=== PATIENT | male | born 1995 | race African-American/Black ===

== ENCOUNTER → 2017-03-29 | Outpatient (CLI) | payer BC ==
[~2017-03-29] VITALS: Ht 177.8 cm; Wt 81.6 kg
[2017-03-29 10:46] VITALS: BP 114/62
[2017-03-29 11:07] VITALS: BP 112/68
--- NOTE | 2017-03-29 12:33 | Diagnostic Imaging Report ---
EXAMINATION: Fluoroscopic guided joint injection/arthrogram- right. INDICATION: Right shoulder pain, request for MR arthrogram of the shoulder is submitted. Fluoroscopy time: 14 seconds CONSENT: Informed consent was obtained from the patient. The risks, benefits, potential complications and alternatives were reviewed and all questions answered to the patient's satisfaction. PROCEDURE: After sterile preparation and draping, 1% lidocaine was utilized for local anesthesia. A 22 spinal needle is introduced into the glenohumeral joint under fluoroscopic guidance. After confirmation of proper positioning with intra-articular injection of, 12 ml of 1:150 concentration of Gadavist in normal saline is injected the into the joint. The patient tolerated the procedure well with no immediate complications. FINDINGS: Arthrogram demonstrates Normal distribution of contrast in the joint with no filling of the subacromial subdeltoid bursa seen. IMPRESSION: Successful fluoroscopic guided injection of diluted gadolinium into the right shoulder . MR arthrogram to follow. Dictated by: Dictated on workstation # [id number]
--- NOTE | 2017-03-29 16:42 | Diagnostic Imaging Report ---
EXAMINATION: Multiplanar, multisequence MRI of the right shoulder is performed with intra-articular contrast. INDICATION: Right shoulder pain. FINDINGS: There is no os acromiale. There is a focal depression of the cortex along the posterior lateral aspect of the humeral head which might relate to an old Hill-Sachs deformity. There are cystic changes in the humeral head posterolaterally as well which may relate to rotator cuff tendinopathy and mild associated bone marrow edema. There is a high-grade partial tear involving the supraspinatus anterior fibers with retraction of the deep fibers seen from the insertion site of about 2 cm. The area of the tear is approximately 1.5 cm anterior posteriorly. The subscapular tendon is intact. The long head biceps tendon is in its groove. There is undercutting of the superior segment of the labrum with contrast suggestive of a nondisplaced labral tear. The acromioclavicular joint demonstrates no significant degenerative change or osteophyte formation. The muscle bulk is intact. IMPRESSION: 1. High-grade partial tear involving the deep fibers of the supraspinatus with about 2 cm of retraction of the torn fibers from the insertion site. 2. Suggestion of a nondisplaced SLAP tear. Dictated by: Dictated on workstation # [id number]
== END ==
LOC: RAD 10:30
PROVIDERS: ATTEND Orthopaedic Surgery
DX: S43.001A Unspecified subluxation of right shoulder joint, initial encounter (principal)
CPT/HCPCS: 23350; 73040; 73222